=== PATIENT | female | born 1995 | race Caucasian/White ===

== ENCOUNTER 2024-05-21 21:54 | Emergency (ER) | payer OTHER ==
[~2024-05-21] VITALS: Ht 170.2 cm; Wt 75.0 kg
[2024-05-21] MEDS ORDERED: ADDERALL XR20 MG PO (22:09)
[2024-05-21 22:44] LABS: EOS # 0.04 K/mm3 (0.04-0.40); EOS % 0.4 % (1.0-5.0); HEMATOCRIT 40.3 % (37.0-47.0); HEMOGLOBIN 14.4 g/dL (12.5-16.0); LYMPH# 0.81 K/mm3 (1.50-4.00); MEAN CELL VOLUME 89 fl (78-100); MEAN CORPUSCULAR HEMOGLOBIN 32 pg (27-31); MEAN CORPUSCULAR HGB CONC 36 g/dL (33-37); MEAN PLATELET VOLUME 9.7 fl (7.4-10.4); MONO # 0.87 K/mm3 (0.20-0.80); NEU # 7.15 K/mm3 (1.40-6.50); PLATELET COUNT 241 K/mm3 (130-400); RED BLOOD COUNT 4.51 M/mm3 (4.10-5.30); RED CELL DISTRIBUTION WIDTH 12.4 % (11.5-14.5); WHITE BLOOD COUNT 8.9 K/mm3 (4.8-10.8)
[2024-05-21 22:51] LABS: ALBUMIN 4.2 g/dL (3.5-5.0)
[2024-05-21 22:53] LABS: CALCIUM 9.1 mg/dL (8.3-10.5)
[2024-05-21 22:54] LABS: TOTAL PROTEIN 7.1 g/dL (6.4-8.3)
[2024-05-21 22:56] LABS: TOTAL BILIRUBIN 0.3 mg/dL (0.2-1.2)
[2024-05-21] MEDS ORDERED: Oseltamivir 75 MG CAP PO ONE (23:15)
[2024-05-21] MEDS ORDERED: TAMIFLU 75MG75 MG PO (23:18)
[2024-05-21] MEDS ORDERED: ALBUTEROL2.5 MG/3 M IH (23:18)
[2024-05-21] MEDS ORDERED: Albuterol/Ipratropium 3 MG-0.5 MG/3 ML Neb Soln IH ONE (23:30)
[2024-05-21 23:37] VITALS: BP 143/98
== END 2024-05-21 23:38 | disposition home or self-care (01) ==
LOC: ED 21:54
PROVIDERS: Family Medicine
DX: J10.1 Influenza due to other identified influenza virus with other respiratory manifestations (principal)